=== PATIENT | male | born 1985 | race African-American/Black ===

== ENCOUNTER 2019-12-22 06:30 | Emergency (ER) | payer OTHER, MEDICAID ==
[2019-12-22 06:41] VITALS: BP 194/115
--- NOTE | 2019-12-22 07:02 | ER Document Report ---
ED General - General Chief Complaint: Allergic Reaction Stated Complaint: ALLERGIES NEED DR NOTE Notes: 34-year-old male presents asking for a work note after missing work yesterday for runny nose and allergies better with Claritin. - Related Data Allergies/Adverse Reactions: No Known Allergies Allergy (Unverified 12/22/19 06:50) Past Medical History - General Information source: Patient - Social History Smoking Status: Former Smoker Frequency of alcohol use: None Drug Abuse: None Family History: None Review of Systems - Review of Systems Notes: REVIEW OF SYSTEMS GEN: Denies fever, chills, weight loss ENT: Runny nose sneezing pain EYES: Itchy eyes no blurry vision CV: Denies chest pain, palpitations, edema RESP: Denies cough, shortness of breath, wheezing GI: Denies abdominal pain, nausea, vomiting, diarrhea MSK: Denies joint pain/swelling, edema, SKIN: Denies rash, skin lesions LYMPH: Denies swollen glands/lymph nodes NEURO: Denies headache, focal weakness or numbness, dizziness PSYCH: Denies depression, suicidal or homicidal ideation PHYSICAL EXAMINATION General: No acute distress, well-nourished Head: Atraumatic, normocephalic ENT: Mouth normal, oropharynx moist, no exudates or tonsillar enlargement Eyes: Conjunctiva normal, pupils equal, lids normal Neck: No JVD, supple, no guarding CVS: Normal rate, regular rhythm, no murmurs Resp: No resp distress, equal and normal breath sounds bilaterally GI: Nondistended, soft, no tenderness to palpation, no rebound or guarding Ext: No deformities, no edema, normal range of motion in upper and lower ext Back: No CVA or midline TTP Skin: No rash, warm Lymphatic: No lymphadeopathy noted Neuro: Awake, alert. Face symmetric. GCS 15. Physical Exam - Vital signs Vitals: Temp Pulse Resp BP Pulse Ox 98.0 F 106 H 20 194/115 H 100 12/22/19 06:38 12/22/19 06:38 12/22/19 06:38 12/22/19 06:38 12/22/19 06:38 Course - Re-evaluation Re-evalutation: 12/22/19 07:14 Resolved allergies asking for retroactive work note Return to work today I have discussed with the patient there likely diagnosis, aftercare plan, follow-up plans and my usual and customary return precautions. They verbalized understanding of this. - Vital Signs Vital signs: Temp Pulse Resp BP Pulse Ox 98.0 F 106 H 20 194/115 H 100 12/22/19 06:38 12/22/19 06:38 12/22/19 06:38 12/22/19 06:38 12/22/19 06:38 Discharge - Discharge Clinical Impression: Allergies Qualifiers: Encounter type: sequela Qualified Code(s): T78.40XS - Allergy, unspecified, sequela Condition: Good Disposition: HOME, SELF-CARE Forms: Return to Work
== END 2019-12-22 07:06 | disposition home or self-care (01) ==
LOC: ER 06:30
DX: T78.40XS Allergy, unspecified, sequela (principal); R09.89 Other specified symptoms and signs involving the circulatory and respiratory systems; Z87.891 Personal history of nicotine dependence
CPT/HCPCS: 99281